=== PATIENT | female | born 1935 | race Caucasian/White ===

== ENCOUNTER → 2018-08-27 | Outpatient (CLI) | payer MEDICARE ==
[~2018-08-27] MED LIST: LEVO88TA26 PO
--- NOTE | 2018-08-27 12:20 | Diagnostic Imaging Report ---
Indication: Routine screening. Comparison is made with prior mammogram from 10/04/2016 and 07/29/2015. 2-D and 3-D bilateral screening mammography was performed with CAD. Scattered fibronodular densities are identified bilaterally. 2 biopsy clips on the right and 1 biopsy clip on the left again noted. There are scattered benign-appearing calcifications bilaterally. No mass or malignant appearing microcalcifications are seen. The axillae are unremarkable. Impression: BI-RADS category 2. No mammographic features suspicious for malignancy are identified. ACR BI-RADS Category 2: Benign findings. Result letter will be mailed to the patient. Note: At least 10% of breast cancer is not imaged by mammography. Dictated by: Dictated on workstation # [id number]
== END ==
LOC: RAD 10:38
PROVIDERS: ATTEND Nurse Practitioner Family
DX: Z12.31 Encounter for screening mammogram for malignant neoplasm of breast (principal)
CPT/HCPCS: 77067

== ENCOUNTER → 2019-02-19 | Outpatient (CLI) | payer MEDICARE ==
--- NOTE | 2019-02-19 14:56 | Diagnostic Imaging Report ---
INDICATION: Knee pain, status post previous fall. COMPARISON: None. FINDINGS: Three views of the left knee joint demonstrate no acute fracture or dislocation. No focal osseous lesions are seen. No significant joint effusion is seen. The surrounding soft tissue structures are unremarkable. There are no radiopaque foreign bodies. IMPRESSION: 1. No acute fractures or dislocations of the left knee joint. Dictated by: Dictated on workstation # [id number]
== END ==
LOC: RAD 14:38
PROVIDERS: ATTEND Internal Medicine
DX: M70.52 Other bursitis of knee, left knee (principal); Z91.81 History of falling
CPT/HCPCS: 73562

== ENCOUNTER → 2019-03-28 | Outpatient (CLI) | payer MEDICARE ==
--- NOTE | 2019-03-28 10:41 | Diagnostic Imaging Report ---
PROCEDURE: MRI left joint lower extremity without contrast. TECHNIQUE: Multiplanar, multisequence non contrast-enhanced MRI of the left lower extremity was accomplished. INDICATION: Knee pain with burning sensation FINDINGS: The anterior cruciate and posterior cruciate ligaments are intact. Both the superficial and deep components of the medial collateral ligament appear to be intact. The biceps femoris, tibial collateral and iliotibial band are intact. Popliteus tendon is intact. There is a complex tear of the posterior horn of medial meniscus. The anterior horn of the medial meniscus is intact. Lateral meniscus is normal in signal intensity and morphology. Quadriceps tendon and patellar tendons are intact. There is a small knee joint effusion. The articular cartilage is relatively well maintained in both the medial and lateral knee joint compartment particularly for the patient's age. There is no underlying marrow edema. Patellar articular cartilage is also well maintained. IMPRESSION: Complex tear of the posterior horn of the medial meniscus. Small knee joint effusion. Otherwise minimal three-compartment osteoarthritic change. Dictated by: Dictated on workstation # [id number]
== END ==
LOC: RAD 09:13
PROVIDERS: ATTEND Nurse Practitioner
DX: S83.232A Complex tear of medial meniscus, current injury, left knee, initial encounter (principal); S83.412A Sprain of medial collateral ligament of left knee, initial encounter
CPT/HCPCS: 73721

== ENCOUNTER → 2019-11-10 | Outpatient (CLI) | payer MEDICARE ==
--- NOTE | 2019-11-10 11:52 | Diagnostic Imaging Report ---
INDICATION: Routine screening. COMPARISON: Comparison is made with prior mammograms from 08/27/2018 and 10/04/2016. 2-D and 3-D bilateral screening mammography was performed. The current study was also evaluated with a Computer Aided Detection (CAD) system. 3-D tomosynthesis was also performed and reviewed. FINDINGS: Both breasts remain heterogeneously dense, limiting the sensitivity of mammography. Benign calcifications in both breasts are again noted. There are multiple biopsy clips bilaterally. No new mass or malignant-appearing microcalcifications are seen. Axillae are unremarkable. IMPRESSION: No mammographic features suspicious for malignancy are identified. ACR BI-RADS Category 2: Benign findings. Result letter will be mailed to the patient. Note: At least 10% of breast cancer is not imaged by mammography. Dictated by: Dictated on workstation # [id number]
== END ==
LOC: RAD 10:05
PROVIDERS: ATTEND Internal Medicine
DX: Z12.31 Encounter for screening mammogram for malignant neoplasm of breast (principal)
CPT/HCPCS: 77067

== ENCOUNTER → 2021-06-28 | Outpatient (CLI) | payer MEDICARE ==
--- NOTE | 2021-06-28 14:10 | Diagnostic Imaging Report ---
INDICATION: Fall and low back pain. TIME OF EXAM: 11:54 a.m. AP, lateral, both oblique, as well as flexion and extension lateral views were obtained of the lumbar spine. FINDINGS: There is mild left convexity lumbar scoliotic curvature. There is normal lordotic curvature. There is anterolisthesis of L4 on L5. There are compression fracture deformities involving L1 and L4 vertebral bodies, age indeterminate. There is generalized spondylosis with variable disc space narrowing and marginal spurring. There is multilevel facet arthropathy. No definite motion during flexion or extension maneuvers is identified. IMPRESSION: Lumbar spondylosis and facet arthropathy with anterolisthesis of L4 on L5. There are age-indeterminate compression fractures of L1 and L4. Dictated by: Dictated on workstation # [id number]
== END ==
LOC: RAD 11:28
PROVIDERS: ATTEND Internal Medicine
DX: M48.56XA Collapsed vertebra, not elsewhere classified, lumbar region, initial encounter for fracture (principal); M47.816 Spondylosis without myelopathy or radiculopathy, lumbar region; M43.16 Spondylolisthesis, lumbar region
CPT/HCPCS: 72114

== ENCOUNTER → 2021-09-07 | Outpatient (CLI) | payer MEDICARE ==
--- NOTE | 2021-09-07 10:30 | Diagnostic Imaging Report ---
INDICATION: Fall with back pain. Comparison with 06/28/2021 lumbar spine. There are old compression deformities involving T12, L1 and L4. No acute changes are seen. There is grade 1 anterolisthesis again noted of L4 on L5 with the loss of disc space height at the L5-S1 level with posterior facet and ligamentous hypertrophy. The aorta is calcified. There is moderate scoliosis to the left again noted. SI joints show moderate sclerotic change bilaterally. IMPRESSION: Old compression deformities T12, L1 and L4 with rather advanced degenerative disc and facet disease with hypertrophic bony changes at L5-S1. No significant change has occurred since previous exam. Dictated by: Dictated on workstation # [id number]
== END ==
LOC: RAD 09:37
PROVIDERS: ATTEND Neurological Surgery
DX: M47.814 Spondylosis without myelopathy or radiculopathy, thoracic region (principal); M47.816 Spondylosis without myelopathy or radiculopathy, lumbar region; M51.34 Other intervertebral disc degeneration, thoracic region; M51.36 Other intervertebral disc degeneration, lumbar region; M43.8X6 Other specified deforming dorsopathies, lumbar region; M89.38 Hypertrophy of bone, other site; W19.XXXA Unspecified fall, initial encounter
CPT/HCPCS: 72100

== ENCOUNTER → 2021-12-05 | Outpatient (CLI) | payer MEDICARE ==
--- NOTE | 2021-12-05 12:31 | Diagnostic Imaging Report ---
INDICATION: Postmenopausal state, screening for osteoporosis COMPARISON: 10/04/2016 FINDINGS: AP Spine L1-L4: [BMD (g/cm2): 1.092] [T-Score: -0.9] [Z-Score: 1.1] [BMD Previous: 1.165] [BMD % Change: -6.3] LT Hip Neck: [BMD (g/cm2): 0.705] [T-Score: -2.4] [Z-Score: 0.0] LT Hip Total: [BMD (g/cm2):0.772] [T-Score:-1.9] [Z-Score: 0.4] [BMD Previous: 0.772] [BMD % Change: -5.5] RT Hip Neck: [BMD (g/cm2):0.712] [T-Score:-2.3] [Z-Score:0.1] RT Hip Total: [BMD (g/cm2):0.746] [T-score:-2.1] [Z-Score:0.2] [BMD Previous:0.800] [BMD % Change:-6.8] *Indicates significant change from prior examination based on 95% confidence level. World Health Organization criteria for BMD interpretation classify patients as Normal (T-score at or above -1.0), Osteopenic (T-score between -1.0 and -2.5) or Osteoporotic (T-score at or below -2.5). LIMITATIONS AND MODIFICATION: None. FRACTURE RISK (FRAX SCORE): The ten year probability of (%): Major Osteoporotic Fracture: [25.3] Hip Fracture: [8.3] IMPRESSION: 1. Osteopenia (Low bone mass). 2. No significant change in bone mineral density since prior examination. 3. See below National Osteoporosis Foundation guidelines on when to potentially initiate pharmacologic therapy. Based on the National Osteoporosis Foundation Guidelines, pharmacologic treatment should be initiated in any of the following, unless clinical conditions suggest otherwise: * Any patient with prior fragility fracture of the hip or vertebrae. A spine fracture indicates 5X risk for subsequent spine fracture and 2X risk for subsequent hip fracture. * Osteoporosis (T-score <-2.5). * Postmenopausal women and men age 50 and older with low bone mass/osteopenia (T-score between -1.0 and -2.5) by DXA and 10-year major osteoporotic fracture greater than 20% or a 10-year probability of hip fracture greater than 3%. These fracture risks are supplied above in the FRAX score, if applicable. * Clinician judgement and/or patient preferences may indicate treatment for people with 10-year fracture probabilities above or below these levels. Dictated by: Dictated on workstation # [id number]
--- NOTE | 2021-12-05 15:29 | Diagnostic Imaging Report ---
EXAMINATION: Digital mammogram bilateral screening with CAD. INDICATION: Screening. COMPARISON: This study was compared to the prior exams of 11/10/2019, 08/27/2018, and 10/04/2016. PERSONAL HISTORY: At this time, there are no current complaints. FINDINGS: The fibroglandular tissue in both breasts is heterogeneously dense. This does limit the sensitivity of this exam. As noted on the prior exam, there are macro and microcalcifications scattered throughout both breasts. In the interval since the previous study, however, a few new microcalcifications have developed deep in the midportion of the right breast approximately 10 cm from the nipple. These microcalcifications do not have a particularly threatening appearance. Even so, I would recommend that a compression/magnification view of these calcifications be obtained in the ML and CC projections for further study. The overall appearance of the breasts has not changed significantly otherwise. There is no primary or secondary sign of malignancy noted. Biopsy clips are again seen in both breasts. IMPRESSION: Additional mammographic views of the right breast would be recommended for further study. ACR BI-RADS Category 0: Incomplete. (Needs additional imaging evaluation). Result letter will be mailed to the patient. Note: At least 10% of breast cancer is not imaged by mammography. Dictated by: Dictated on workstation # [id number]
== END ==
LOC: RAD 11:00
PROVIDERS: ATTEND Internal Medicine
DX: Z12.31 Encounter for screening mammogram for malignant neoplasm of breast (principal); Z13.820 Encounter for screening for osteoporosis; M81.0 Age-related osteoporosis without current pathological fracture; M85.88 Other specified disorders of bone density and structure, other site; Z78.0 Asymptomatic menopausal state
CPT/HCPCS: 77063; 77067; 77080

== ENCOUNTER → 2021-12-21 | Outpatient (CLI) | payer MEDICARE ==
--- NOTE | 2021-12-21 10:40 | Diagnostic Imaging Report ---
INDICATION: Right breast calcifications. Patient presents for additional views. COMPARISON: Correlation is made with the screening study from 12/05/2021 and prior mammograms dating back to 2016. TECHNIQUE: Unilateral right 2D and 3D diagnostic mammography was performed. This includes magnification CC and ML views as well as conventional 90 degree lateral views. FINDINGS: There has been development of powdery calcifications in the posterior right breast just lateral to the nipple line. These appear to be superiorly located on the ML views. These appear to be fairly clustered. No associated soft tissue mass is seen. There are scattered benign calcifications. Marker clips are noted as well from prior biopsies. IMPRESSION: Development of a cluster of powdery calcifications in the upper slightly outer right breast at posterior depth when compared to prior mammograms. These are concerning for DCIS. Tissue sampling is recommended. These would be amenable to stereotactic biopsy approach. ACR BI-RADS Category 4: Suspicious abnormality. Result letter will be mailed to the patient. Note: At least 10% of breast cancer is not imaged by mammography. Dictated by: Dictated on workstation # [id number]
== END ==
LOC: RAD 09:39
PROVIDERS: ATTEND Internal Medicine
DX: R92.1 Mammographic calcification found on diagnostic imaging of breast (principal)
CPT/HCPCS: 77065; G0279

== ENCOUNTER → 2021-12-27 | Outpatient (CLI) | payer MEDICARE ==
[~2021-12-27] VITALS: Ht 163 cm; Wt 62.0 kg
[~2021-12-27] MED LIST changes: +LIDOCAINE 1% INJ 50 ML (XYLOCAINE) VIAL IJ ONE; +LIDOCAINE 1% INJ 50 ML (XYLOCAINE) VIAL ONE
--- NOTE | 2021-12-27 12:32 | Diagnostic Imaging Report ---
INDICATION: Right breast calcifications. Patient presents for stereotactic biopsy. DETAILS OF THE PROCEDURE: The patient was brought to the stereotactic suite and placed in a chair in a sitting upright position. The right breast was positioned lateral medial. The powdery calcifications in the upper and slightly outer aspect of the right breast at posterior depth were stereotactically targeted. The lateral right breast was prepped and draped in the usual sterile fashion. A small amount of 1% lidocaine was utilized for local anesthesia. An 8 gauge needle was advanced from a lateral medial approach and placed per stereotactic coordinates. A total of four core biopsies was obtained utilizing a vacuum-assisted device. A specimen radiograph was then obtained demonstrating several calcifications within sample labeled #3. Four additional samples were then taken with numerous microcalcifications located in samples labeled #8 and 9. Samples were obtained with a vacuum-assisted device. A marker clip was then deployed. The needle was removed and hemostasis was obtained. The patient tolerated the procedure well. A post procedure mammogram was performed demonstrating a marker clip more medially located than expected, likely owing to clip migration. There is a biopsy cavity in the appropriate location in the upper and slightly outer right breast at posterior depth. All images were viewed on a dedicated workstation. IMPRESSION: Successful stereotactic biopsy of calcifications in the upper and outer right breast at posterior depth utilizing the vacuum assisted device. Note is made that there does appear to be clip migration medially. Pathology results are currently pending. Dictated by: Dictated on workstation # [id number]
== END ==
LOC: RAD 10:30
PROVIDERS: ATTEND Internal Medicine
DX: R92.1 Mammographic calcification found on diagnostic imaging of breast (principal)
CPT/HCPCS: 19081; A4648

== ENCOUNTER 2023-01-16 13:19 | Outpatient (CLI) | payer MEDICARE ==
[~2023-01-16] VITALS: Ht 162.6 cm; Wt 62.0 kg
[~2023-01-16 13:19] MED LIST changes: -LIDOCAINE 1% INJ 50 ML (XYLOCAINE) VIAL IJ ONE; -LIDOCAINE 1% INJ 50 ML (XYLOCAINE) VIAL ONE
[2023-01-16 13:20] VITALS: BP 145/63
[2023-01-16] MEDS ORDERED: DENOSUMAB 60 MG/1 ML (PROLIA) SQ SCH (13:45)
== END 2023-01-16 14:15 | disposition home or self-care (01) ==
LOC: SDC 13:19
PROVIDERS: ATTEND Internal Medicine
DX: M81.0 Age-related osteoporosis without current pathological fracture (principal)
CPT/HCPCS: 96372

== ENCOUNTER 2023-08-13 11:59 | Outpatient (CLI) | payer MEDICARE ==
[~2023-08-13] VITALS: Ht 162 cm; Wt 63.3 kg
[2023-08-13 12:05] VITALS: BP 143/74
[2023-08-13] MEDS ORDERED: DENOSUMAB 60 MG/1 ML (PROLIA) SQ ONE (12:15)
== END 2023-08-13 12:25 | disposition home or self-care (01) ==
LOC: SDC 11:59
PROVIDERS: ATTEND Internal Medicine
DX: M81.0 Age-related osteoporosis without current pathological fracture (principal)
CPT/HCPCS: 96372